=== PATIENT | male | born 1995 | race Two or more races ===

== ENCOUNTER 2018-09-28 13:13 | Emergency (ER) | payer SELFPAY ==
[~2018-09-28] VITALS: Ht 167.6 cm; Wt 90.7 kg
[2018-09-28 13:13] VITALS: BP 124/64
[2018-09-28] MEDS ORDERED: cefTRIAXone SOD 1,000 MG VL IM ONE (13:45)
== END 2018-09-28 14:34 | disposition home or self-care (01) ==
LOC: ER 13:25
DX: J03.90 Acute tonsillitis, unspecified (principal); J06.9 Acute upper respiratory infection, unspecified
CPT/HCPCS: 71046; 96372; 99283; J0696